=== PATIENT | female | born 1995 | race Hispanic/Latino ===

== ENCOUNTER 2017-08-08 07:42 | Emergency (ER) | payer OTHER ==
[2017-08-08] MEDS ORDERED: Ondansetron ODT 4 MG TAB ONE (08:58)
[2017-08-08 09:09] LABS: Bilirubin Negative (Negative); Blood, Urine Trace (Negative); Clarity CLOUDY (Clear); Glucose, Urine (Dipstick) Negative (Negative); Leukocyte Moderate (Negative); Nitrite Positive (Negative); Protein, Urine (Dipstick) Trace mg/dL (Neg-Trace); Specific Gravity, Urine 1.029 (1.002-1.036); Urobilinogen 0.2 mg/dL (0.2-1.0)
[2017-08-08 09:10] LABS: Pregnancy Test - Urine (BHCG) Negative (Negative); Pregu Control Background? CLEAR/WHITE (CLR/WHITE); Pregu Control Bar Appear? YES (CONTROL BAR); Specific Gravity 1.029 (1.002-1.036)
[2017-08-08 09:13] LABS: Bacteria/HPF 4+ HPF (None Seen)
[2017-08-08 09:16] LABS: Pathc Cast-AUWi Flag 2.87 (0-2.49)
[2017-08-08 09:28] LABS: Manual Microscopic Reviewed? No Path Casts Seen
[2017-08-08 09:29] LABS: Hyaline Casts/LPF 0-3 HYALINE CAST LPF (0-3 Hyaline)
== END 2017-08-08 10:37 | disposition home or self-care (01) ==
LOC: ERS 07:42
DX: N39.0 Urinary tract infection, site not specified (principal); R19.7 Diarrhea, unspecified; J45.909 Unspecified asthma, uncomplicated
CPT/HCPCS: 81003; 81015; 81025; 96372; Q0162

== ENCOUNTER 2017-09-26 09:05 | Emergency (ER) | payer MEDICAID, SELFPAY ==
[2017-09-26 09:39] LABS: #Lymphocytes 1.5 thou/uL (1.20-3.40); #Monocytes 0.7 thou/uL (0.11-0.59); #Neutrophils 5.8 thou/uL (1.40-6.50); %Basophils 0.3 % (0.0-1.0); %Eosinophils 0.2 % (0.0-10.0); %Lymphocytes 18.6 % (21.0-51.0); %Monocytes 8.7 % (0.0-10.0); %Neutrophils 72.1 % (42.0-75.0); Hemoglobin 11.7 g/dL (12.0-16.0); Mean Corpuscular HGB CONC 32.9 g/dL (32.0-36.0); Mean Corpuscular Hemoglobin 25.4 pg (27.0-31.0); Mean Corpuscular Volume 77.3 fl (81.0-99.0); Mean Platelet Volume 8.6 fL (7.4-10.4); Platelet Count 232 thou/uL (130-400); RBC Distribution Width 14.6 % (11.5-14.5); Red Blood Cell (RBC) Count 4.59 mill/uL (4.20-5.40)
[2017-09-26 10:01] LABS: ALT (SGPT) 14 U/L (8-55); AST (SGOT) 15 U/L (5-34); Albumin 4.3 g/dL (3.5-5.0); Alkaline Phosphatase 85 U/L (40-150); Anion Gap 12 mmol/L (10-20); BUN (Urea Nitrogen) 13 mg/dL (7.0-18.7); Bilirubin, Total 0.3 mg/dL (0.2-1.2); CK (CPK) 80 U/L (29-168); Calc. Creatinine Clearance 0 mL/min (70-130); Calcium 9.4 mg/dL (7.8-10.44); Carbon Dioxide 24 mmol/L (22-29); Chloride 106 mmol/L (98-107); Estimated GFR-MDRD Greater than 90; Globulin 3.6 g/dL (2.4-3.5); Glucose 98 mg/dL (70-105); Protein, Total 7.9 g/dL (6.0-8.3); Sodium 138 mmol/L (136-145)
[2017-09-26 10:22] LABS: Bilirubin Negative (Negative); Blood, Urine Negative (Negative); Clarity CLOUDY (Clear); Glucose, Urine (Dipstick) Negative (Negative); Leukocyte Trace (Negative); Nitrite Positive (Negative); Protein, Urine (Dipstick) Trace mg/dL (Neg-Trace); Specific Gravity, Urine 1.028 (1.002-1.036); Urobilinogen 0.2 mg/dL (0.2-1.0); pH, Urine 6.5 (5.0-9.0)
[2017-09-26 10:24] LABS: Pregnancy Test - Urine (BHCG) Negative (Negative)
[2017-09-26 10:25] LABS: Bacteria/HPF 1+ HPF (None Seen); Hyaline Casts/LPF 4-6 HYALINE CAST LPF (0-3 Hyaline); Pathc Cast-AUWi Flag 0.58 (0-2.49); Pregu Control Background? CLEAR/WHITE (CLR/WHITE); Pregu Control Bar Appear? YES (CONTROL BAR); RBC/HPF 0-3 HPF (0-3); Specific Gravity 1.028 (1.002-1.036)
[2017-09-26 10:31] LABS: Renal Epithelial None Seen HPF (0-3); Transitional Epithelial NONE SEEN HPF (0-3)
[2017-09-28 01:19] LABS: Chlamydia by PCR Not Detected (NotDetected); GC by PCR Not Detected (NotDetected)
== END 2017-09-26 11:10 | disposition home or self-care (01) ==
LOC: ERS 09:05
DX: B00.9 Herpesviral infection, unspecified (principal); N39.0 Urinary tract infection, site not specified; R33.9 Retention of urine, unspecified; J45.909 Unspecified asthma, uncomplicated
CPT/HCPCS: 36415; 51702; 80053; 81003; 81015; 81025; 82550; 85025; 87077; 87086; 87186; 87480; 87491; 87510; 87591; 87660

== ENCOUNTER 2018-01-05 13:33 | Emergency (ER) | payer SELFPAY | END 2018-01-05 14:14 | disposition home or self-care (01) | LOC: ERS 13:33 | DX: H10.9 Unspecified conjunctivitis (principal); J45.909 Unspecified asthma, uncomplicated | CPT/HCPCS: 99283 ==

== ENCOUNTER 2018-07-30 22:28 | Emergency (ER) | payer SELFPAY | END 2018-07-30 23:26 | disposition home or self-care (01) | LOC: ERS 22:28 | DX: J02.9 Acute pharyngitis, unspecified (principal); J45.909 Unspecified asthma, uncomplicated | CPT/HCPCS: 87081; 87430; 99281 ==

== ENCOUNTER 2019-06-24 19:05 | Emergency (ER) | payer SELFPAY ==
[2019-06-24] MEDS ORDERED: Acetaminophen 500 MG TAB ONE (20:55)
== END 2019-06-24 21:40 | disposition home or self-care (01) ==
LOC: ERS 19:05
DX: O99.513 Diseases of the respiratory system complicating pregnancy, third trimester (principal); J10.1 Influenza due to other identified influenza virus with other respiratory manifestations; J45.909 Unspecified asthma, uncomplicated; O99.89 Other specified diseases and conditions complicating pregnancy, childbirth and the puerperium; H66.92 Otitis media, unspecified, left ear; Z3A.37 37 weeks gestation of pregnancy
CPT/HCPCS: 87804; 99283

== ENCOUNTER 2019-06-28 15:24 | Inpatient (IN) | payer OTHER ==
[2019-06-28] MEDS ORDERED: hydrALAZINE 20 MG/ML VIAL SLOW IVP PRN ×2 (16:16→16:55)
--- NOTE | 2019-06-28 16:16 | PDOC.FPROB ---
FMR OB H&P: HPI - History of Present Illness Chief Complaint: leaking History of Present Illness: 26 yo @38wks by 30.6wk sonswathi presents with leakage since ~midnight 06/26. She denies contractions but endorses clear mucous vaginal discharge, blood tinged yesterday. Endorses movement. FMR OB H&P: Current - Care : 3 Para: 2 Gestational age: 36 Due date: 07/12/19 - OB Labs Blood type: O RH: positive Antibody Screen: negative HIV: negative RPR: negative HepBsAg: negative Rubella: immune Gonorrhea: negative Chlamydia: negative Pap Smear: NILM 1 hour gtt: 2 hr: 82/105/102 GBS: negative H&H: 10.2/32 Platelets: 275 - Anatomy Survey Anatomy survey: placenta anterior unable to visualize four chamber heart 30.6wk scan, poor dating FMR OB H&P: History - Past Medical History PMH: asthma mild pulmonary stenosis, seen by Dr. Cuellar in the past - OB History OB History: 2 prior SVDs. term - [employer] History [employer] History: NILM negative gonorrhea/chlamydia - Surgical History Sx History: none - Social History Social History: denies - Family History Family History: family hx of diabetes FMR OB H&P: Medications - Current Home Medications: Medication Instructions Recorded Confirmed Type Clotrimazole [Clotrimazole 1% TOP 05/09/16 History Cream] Metronidazole [metroNIDAZOLE] 500 mg PO TID 05/09/16 05/09/16 History Pnv95/Iron Fum/Folic Acid 1 each PO DAILY 05/09/16 05/09/16 History [ Caplet] Allergies/Adverse Reactions: Allergies Allergy/AdvReac Type Severity Reaction Status Date / Time No Known Allergies Allergy Verified 06/28/19 15:57 FMR OB H&P: ROS - Review of Systems General: denies: fever/chills, weight/appetite/sleep changes ENT: denies: nasal congestion, rhinorrhea Cardiovascular: denies: chest pain, palpitation Respiratory: denies: cough, congestion, shortness of breath Gastrointestinal: denies: abdominal pain, bloating, cramping, nausea, vomiting, diarrhea Genitourinary (Female): reports: vaginal discharge, other (LOF). denies: vaginal pain, vaginal bleeding, contractions, vaginal pressure Neurologic: denies: numbness, syncope Integumentary: denies: itching, rash Endocrine: denies: cold intolerance, heat intolerance Psychological: denies: depression, anxiety FMR OB H&P: Vital Signs - Maternal Vital signs: 132/80 - Heart Tones Baseline: 130 Variability: moderate Acceleration: absent Deceleration: absent Category: category 1 FMR OB H&P: Physical Exam - Physical Exam General: NAD HEENT: normocephalic and atraumatic, MMM, conjunctiva clear Neck: supple, no LAD, no JVD Heart: RRR, normal S1/S2 General: CTAB, no respiratory distress Abdomen: soft, gravid Skin: no rash, good tugor, capillary refill <2 seconds, no jaundice Lymphatic: no unusual bruising or bleeding, no purpura, no petechia - Pelvic Exam Vulva: normal hair distribution, no masses, no lesions Deviation from normal: pooling in posterior vagina; dickens/white discharge in posterior vagina SVE: closed FMR OB H&P: A/P - Problem List (1) PROM (premature rupture of membranes) Current Visit: Yes Status: Acute Code(s): O42.90 - KYLAH ROM, 7TH0 BETW RUPT & ONST LABR, UNSP WEEKS OF GEST Discussion: Date/Time: 06/28/19 1615 26 yo @38wks by 30.6wk sono admitted for prolonged PROM. 1.)Prolonged PROM-@38wks by poor dating 30.2wks; will induce labor with cytotec d/t unfavorable cervix. Frequent cervical checks q3hs. Transition to pitocin once favorable. Will monitor vitals for fever etc d/t prolonged PROM. GBS negative. 2.)Hx of asthma-restart home med 3.)Elevated BP without diagnosis of htn-monitor over next 4 hours; consider PIH workup if indicated. This H&P was discussed with Dr. Santiago
[2019-06-28 16:23] LABS: Amnisure Test RUPTURE DETECTED (No Rupture)
[2019-06-28 16:24] LABS: Amnisure Internal Control QC ACCEPTABLE (ACCEPTABLE)
[2019-06-28 16:51] VITALS: BMI 33.6
[2019-06-28] MEDS ORDERED: Ondansetron PF 4 MG/2 ML Vial IVP PRN (16:55)
[2019-06-28] MEDS ORDERED: NS / Oxytocin 40 units/1000ml 1,000 ML IV PRN (16:55)
[2019-06-28] MEDS ORDERED: Promethazine HCl 25 MG/ML VIAL IM PRN (16:55)
[2019-06-28] MEDS ORDERED: Misoprostol 200 MCG TAB PR PRN (16:55)
[2019-06-28] MEDS ORDERED: Ibuprofen 800 MG TAB PO PRN (16:55)
[2019-06-28] MEDS ORDERED: Lidocaine 1% (PF) 30 ML VIAL SC PRN (16:55)
[2019-06-28] MEDS ORDERED: Acetaminophen 500 MG TAB PO PRN (16:55)
[2019-06-28] MEDS: Lactated Ringer's 1,000 ML IV SCH (17:10)
--- NOTE | 2019-06-28 17:28 | HP ---
TIME: 1653 hours. The patient was first seen by Floresita Phan who is the clinical resident transition specialist. REASON FOR EVALUATION: The patient was sent here by the clinic/resident clinic for suspected ROM. HISTORY OF PRESENT ILLNESS: This is a 24-year-old, G3, P2, with a history of 2 prior vaginal deliveries, who is currently at 38 weeks by poor gestational criteria (30 week dating ultrasound). She started that she started leaking fluid about 1-1/2 to 2 days ago and was seen in the clinic where one of the residents performed a sterile spec and noted clear pooling per os. When she arrived here in Labor and Delivery, she again had a sterile spec, which confirmed pooling and AmniSure was positive. She has denied contractions, vaginal bleeding, or decrease in movement. She has no history of fever. REVIEW OF SYSTEMS: Complete review of systems was checked and is otherwise negative unless specified in the HPI. There are no symptoms of pre-eclampsia. PAST OB HISTORY: Significant for 2 prior vaginal births. This , she is GBS negative. PAST MEDICAL HISTORY: Reviewed with resident and will be in their full H and P report. PAST SURGICAL HISTORY: Reviewed with resident and will be in their full H and P report. ALLERGIES: REVIEWED WITH RESIDENT AND WILL BE IN THEIR FULL H AND P REPORT. PHYSICAL EXAMINATION: VITAL SIGNS: Blood pressure is 124/90 and repeat systolic was 138/80. GENERAL: She is in no acute distress. VAGINAL EXAM: Cervix is closed. On monitoring, heart tones are in the 140s to 150s with moderate variability. There are no pathological decelerations. There are no contractions on tocodynamometer. ASSESSMENT: This is a 24-year-old, G3, P2, at 38 weeks by poor date, with prolonged prelabor, rupture of membranes, GBS negative. PLAN: 1. Cytotec per vagina per protocol and per ACOG guidelines. 2. No indication for GBS coverage at this time, even though she is prolonged, culture is negative. 3. Monitor temperatures closely and if there is elevation in temperature or tachycardia, we may consider IV ampicillin and gentamicin for metritis coverage. 4. The patient will be admitted for induction of labor due to a prolonged prelabor rupture of membranes. 5. Please see the full report by the resident transition specialist. Job ID: [id number]
[2019-06-28] MEDS: Misoprostol 100 MCG TAB VAG SCH (17:35)
[2019-06-28 17:50] LABS: Hemoglobin 12.5 g/dL (12.0-16.0); Mean Corpuscular HGB CONC 32.1 g/dL (32.0-36.0); Mean Corpuscular Hemoglobin 24.5 pg (27.0-31.0); Mean Corpuscular Volume 76.2 fL (78.0-98.0); Mean Platelet Volume 10.8 fL (7.4-10.4); Platelet Count 246 thou/uL (130-400); RBC Distribution Width 20.2 % (11.5-14.5); Red Blood Cell (RBC) Count 5.12 mill/uL (4.20-5.40); White Blood Cell (WBC) Count 6.7 thou/uL (4.8-10.8)
[2019-06-28 18:35] LABS: Syphilis Antibody Nonreactive (Nonreactive); Syphilis Antibody Index 0.07 S/CO (<1.00 Non-Reactive)
[2019-06-28 18:36] LABS: HBSAg Index 0.26 S/CO (0-0.99); Hep B Surf Ag Non-Reactive S/CO (NonReactive)
--- NOTE | 2019-06-28 21:22 | PDOC.LDPN ---
Labor & Delivery Progress Note - Subjective Subjective: comfortable, vaginal pressure, no concerns - Objective Vital signs reviewed and normal: yes General: NAD, resting Uterine fundus: non tender Dilation: 2 cm Effacement: 50% Station: -3 FHT: category 1, variability present [place] contractions every: 1 mins Plan: continue plan of care -: Pt is a 24 yo female who presents for prolonged prelabor ROM: # Prolonged Prelabor ROM: 1 cm/50/-3 at 2115 with contractions every 1 minute. s/p 1 dose cytotec at this time.Will recheck in 3 hours. If contractions space out will give one more dose of cytotec. # Influenza 5 day hx. Afebrile at this time.
--- NOTE | 2019-06-29 00:44 | PDOC.LDPN ---
Labor & Delivery Progress Note - Subjective Subjective: comfortable, painful contractions - Objective Vital signs reviewed and normal: yes General: resting, breathing through contractions Uterine fundus: non tender Dilation: 4 cm Effacement: 75% Station: -3 FHT: category 1, acceleration absent, variability present [place] contractions every: q2-3 mins Plan: continue plan of care, pitocin for augmentation (Faculty note: Aware of episode of VB after cytotec. We have since held the cytotec. ) -: Pt is a 24 yo female who presents for prolonged prelabor ROM: # Prolonged Prelabor ROM: /-3 at 0015. s/p 1 dose cytotec at this time. Will recheck in 3 hours. FHT 150's with moderate variability, accels, Cx q2-3 mins. Cat 1 strip. # Vaginal Bleeding 43 gm of blood/clot weighed. Pt does not have any abdominal tenderness. Does have pain only with contractions, not continuous pain. She is not currently bleeding. U/S by residents did not reveal areas of abruption. - check pads for bleeding - assess for abdominal pain/tenderness - d/c cytotec, let pt labor for now, if augmentation needed will start pitocin - monitor FHT's # Influenza 5 day hx. Afebrile at this time.
[2019-06-29] MEDS ORDERED: Fentanyl 4 mcg/Bup 0.1% Cadd 100 ML ONE (01:12)
[2019-06-29] MEDS: Lactated Ringer's 1,000 ML IV SCH ×3 (01:15→17:02)
[2019-06-29] MEDS ORDERED: Naloxone HCl 0.4 mg/ml Vial IVP PRN ×2 (01:59)
[2019-06-29] MEDS ORDERED: Ondansetron PF 4 MG/2 ML Vial IVP PRN (01:59)
[2019-06-29] MEDS ORDERED: Promethazine HCl 25 MG/ML VIAL IM PRN (01:59)
[2019-06-29] MEDS ORDERED: Acetaminophen 325 MG TAB PO PRN (01:59)
[2019-06-29] MEDS ORDERED: ePHEDrine/0.9% NaCl/PF SYRINGE 50 mg/10 ml SLOW IVP PRN (01:59)
[2019-06-29] MEDS ORDERED: Lactated Ringer's 500 ML IV PRN (01:59)
[2019-06-29] MEDS ORDERED: diphenhydrAMINE 50 MG/ML VIAL IVP PRN (01:59)
[2019-06-29] MEDS ORDERED: Communication Order-Pharmacy FS SCH (02:00)
[2019-06-29] MEDS ORDERED: Fentanyl 4 mcg/Bupivacaine 0.1% Cassette 100 ML EPIDURAL SCH (02:00)
--- NOTE | 2019-06-29 03:30 | PDOC.EVN ---
Event Note - Event Note Event Note: OBGYN Staff: [id number] Aware of episode of VB after last cytotec. CX strill 4cm at last check...ok to start pitocin as Prolonged ROM and still latent phase. VB episode may have been CX change vs possible slight marginal placental separation.However, FHTs are reassurring and uterine fundus soft and NT. Vitals stable. OK for pit for augmentation to facilitate labor process.
--- NOTE | 2019-06-29 03:36 | PDOC.LDPN ---
Labor & Delivery Progress Note - Subjective Subjective: comfortable, vaginal pressure - Objective Vital signs reviewed and normal: yes General: resting, breathing through contractions Dilation: 4cm Effacement: 75% Station: -2 FHT: category 2, variable decelerations, variability present [place] contractions every: q3mins Plan: pitocin for augmentation -: Pt is a 24 yo female who presents for prolonged prelabor ROM: # Prolonged Prelabor ROM: 4/75/-2 at 0300. s/p 1 dose cytotec at this time. Cat 2 Strip. - start pitocin. Pt has not made significant change and will help augment labor. Will closely monitor as pt has had 2 episodes of vaginal bleeding. - recheck in 2 hours # Vaginal Bleeding Pt has 2 episodes of vaginal bleeding/clots. Pt does not have any abdominal tenderness. Does have pain only with contractions, not continuous pain. U/S by residents did not reveal areas of abruption at 0015. - check pads for bleeding - assess for abdominal pain/tenderness - d/c cytotec, let pt labor for now, augment with pitocin - monitor FHT's # Influenza 5 day hx. Afebrile at this time.
[2019-06-29] MEDS ORDERED: NS w/ Oxytocin 10 units 500 ML IV SCH (03:45)
[2019-06-29] MEDS: NS w/ Oxytocin 10 units 500 ML IV SCH (04:01)
--- NOTE | 2019-06-29 05:40 | PDOC.LDPN ---
Labor & Delivery Progress Note - Subjective Subjective: comfortable - Objective Vital signs reviewed and normal: yes General: NAD, resting Uterine fundus: non tender Dilation: 6 Effacement: 90% Station: -1 FHT: category 2, late decelerations, absent or minimal variables [place] contractions every: 2-3 Resuscitative measures: maternal IV fluids, maternal position change - Assessment (1) PROM (premature rupture of membranes) Code(s): O42.90 - KYLAH ROM, 7TH0 BETW RUPT & ONST LABR, UNSP WEEKS OF GEST Current Visit: Yes Status: Acute (2) Prolonged rupture of membranes Code(s): O42.90 - KYLAH ROM, 7TH0 BETW RUPT & ONST LABR, UNSP WEEKS OF GEST Current Visit: Yes Status: Acute Plan: continue plan of care, pitocin for augmentation -: Pt is a 24 yo female who presents for prolonged prelabor ROM: # Prolonged Prelabor ROM: /-1 at 0515. s/p 1 dose cytotec, pit started 0350, currently at 2. Cat 2 Strip. - Making good change, will continue with pitocin. Will closely monitor as pt has had 2 episodes of vaginal bleeding. - recheck in 2 hours # Vaginal Bleeding Pt has 2 episodes of vaginal bleeding/clots. Pt does not have any abdominal tenderness. Does have pain only with contractions, not continuous pain. U/S by residents did not reveal areas of abruption at 0015. - check pads for bleeding - assess for abdominal pain/tenderness - d/c cytotec, let pt labor for now, augment with pitocin - monitor FHT's # Influenza 5 day hx. Afebrile at this time.
[2019-06-29] MEDS ORDERED: Lidocaine 1% (PF) 30 ML VIAL ONE (05:56)
[2019-06-29] MEDS ORDERED: NS / Oxytocin 40 units/1000ml 1,000 ML ONE (05:56)
--- NOTE | 2019-06-29 06:41 | PDOC.EVN ---
Event Note - Event Note Event Note: OBGYN Faculty Called stat to LDR7 at 0630 I arrived at 0631 and baby was delivering with residents at [facility]. Blood came with placental delivery suspicion for marginal abruption as previously noted. Baby was vigorous. Apgars 7/9. Gas sent. EBL about 500ml Present for the delivery and placental delivery. Placenta to path. Mother and baby well. baby doing skin to skin.
[2019-06-29 07:01] LABS: Actual Bicarbonate (HCO3a) 23.4 mEq/L (22-28); Base Excess (BEa) -5.1 mEq/L (-2.0 to +3.0)
[2019-06-29 07:04] LABS: Actual Bicarbonate (HCO3v) 23 mEq/L (22-28); Base Excess -4.9 mEq/L (-2.0 to +3.0); pH (Cord, venous) 7.25 (7.32-7.43)
[2019-06-29] MEDS ORDERED: Fluconazole 100 MG TAB PO SCH (08:45)
[2019-06-29] MEDS ORDERED: NS / Oxytocin 40 units/1000ml 1,000 ML IV SCH (09:19)
[2019-06-29] MEDS ORDERED: Bisacodyl 10 MG SUPP PR PRN (09:19)
[2019-06-29] MEDS ORDERED: Benzocaine-Menthol 82.5 ML CAN TOP PRN (09:19)
[2019-06-29] MEDS ORDERED: Preparation H Ointment 28 GM TUBE PR PRN (09:19)
[2019-06-29] MEDS ORDERED: hydrALAZINE 20 MG/ML VIAL SLOW IVP PRN (09:19)
[2019-06-29] MEDS ORDERED: Milk Of Magnesia 30 ML UDCUP PO PRN (09:19)
[2019-06-29] MEDS ORDERED: Lanolin Ointment 7 GM TUBE TOP PRN (09:19)
[2019-06-29] MEDS ORDERED: Adacel (T-DAP) 0.5 ML SYRINGE IM ONE (09:19)
[2019-06-29] MEDS ORDERED: Docusate Calcium (SURFAK) 240 MG CAP PO SCH (09:45)
[2019-06-29] MEDS ORDERED: Prenatal Vitamin 1 TAB PO SCH (09:45)
[2019-06-29] MEDS ORDERED: Ferrous Sulfate 325 MG TAB PO SCH (09:45)
[2019-06-29] MEDS: metroNIDAZOLE 500 MG TAB PO SCH ×2 (11:21→21:58)
[2019-06-29] MEDS: Ibuprofen 800 MG TAB PO PRN ×2 (14:25→21:59)
[2019-06-29] MEDS: Ferrous Sulfate 325 MG TAB PO SCH (17:02)
[2019-06-29] MEDS: Misoprostol 100 MCG TAB VAG SCH (19:43)
[2019-06-29] MEDS: Docusate Calcium (SURFAK) 240 MG CAP PO SCH (21:59)
[2019-06-30] MEDS: Lactated Ringer's 1,000 ML IV SCH ×3 (04:01→20:21)
[2019-06-30] MEDS: NS w/ Oxytocin 10 units 500 ML IV SCH (04:02)
[2019-06-30] MEDS: Ibuprofen 800 MG TAB PO PRN ×3 (05:05→21:17)
--- NOTE | 2019-06-30 07:28 | DN ---
DATE OF PROCEDURE: 06/29/2019 DELIVERING PHYSICIAN: Dr. Susana Hartmann. PROCEDURE PERFORMED: Spontaneous vaginal delivery. ANESTHESIA: Epidural. ESTIMATED BLOOD LOSS: 500 mL. PREOPERATIVE DIAGNOSES: 1. Term intrauterine . 2. Prelabor rupture of membranes. 3. Pulmonic stenosis. 4. Asthma. 5. Suspected marginal abruption. 6. Late care. POSTOPERATIVE DIAGNOSES: 1. Term intrauterine , delivered. 2. Prelabor rupture of membranes. 3. Pulmonic stenosis. INDICATIONS FOR PROCEDURE: This is a 24-year-old female, G3, P2-0-0-2, who presented with labor rupture of membranes confirmed by AmniSure as well as pooling on speculum exam. She is admitted to Labor and Delivery for induction. The exact time of rupture is unknown, but the patient thinks she had been leaking since the evening of 06/26. DESCRIPTION OF PROCEDURE: This is a 24-year-old female, G3, P2-0-0-2 at 38 and 1 weeks by a 30 and 2 week sono who delivered a viable male at 6:30 a.m. on 06/29/2019 via spontaneous vaginal delivery. Prior to delivery, the patient was noted to have a category II strip with minimal variability and late decelerations. She was flipped onto her hands and knees in an attempt to improve heart tones. While on hands and knees, began to deliver precipitously. Forebag was noted to be present. The infant did deliver over an intact perineum in what appeared to be the occipitoanterior position. Anterior shoulder and remainder of the body delivered. There was one tight nuchal, which was reduced as well as the body cord. The head was held down and mouth and nares were bulb suctioned. The cord was clamped and cut and cord blood was collected. There was also a portion of the umbilical cord collected for gas analysis given the category II strip as well as suspected marginal abruption, which seemed evident during delivery as there was a large amount of blood that was delivered at the time baby was delivered. The placenta did deliver intact with a 3-vessel cord noted. Fundal massage was performed and the fundus was rather firm. Cervix and vagina were inspected and found to be free of lacerations. The infant went to nursery in good condition for routine care. Apgars were 7 and 9 at 1 and 5 minutes respectively. The patient did tolerate the delivery well and went to after routine recovery/care. Job ID: [id number]
[2019-06-30 07:41] LABS: Hemoglobin 8.8 g/dL (12.0-16.0); Mean Corpuscular HGB CONC 31.5 g/dL (32.0-36.0); Mean Corpuscular Hemoglobin 24.4 pg (27.0-31.0); Mean Corpuscular Volume 77.3 fL (78.0-98.0); Mean Platelet Volume 9.3 fL (7.4-10.4); Platelet Count 181 thou/uL (130-400); RBC Distribution Width 19.8 % (11.5-14.5); Red Blood Cell (RBC) Count 3.62 mill/uL (4.20-5.40); White Blood Cell (WBC) Count 7.3 thou/uL (4.8-10.8)
--- NOTE | 2019-06-30 09:31 | PDOC.PP ---
Post Progress Note Post Day #: 1 Subjective: Patient doing well. No significant overnight events. Patient tolerating PO and ambulating without difficulty. PO intake tolerated: yes Flatus: yes Ambulation: yes Vital Signs (12 hours) Temp Pulse Resp BP Pulse Ox 06/30/19 07:52 98.0 F 77 16 128/82 99 06/30/19 05:05 98.1 F 71 16 138/79 06/30/19 01:35 97.7 F 65 16 156/79 H Weight Weight 86.183 kg - Physical Examination General: NAD Cardiovascular: RRR Respiratory: non-labored breathing Abdominal: + bowel sounds, lochia (minimal/like period), no distention, appropriately TTP Fundus firm & at: umbilicus Skin: no rash Neurological: no gross focal deficits Psychiatric: A&Ox3, normal affect Result Diagrams: 06/30/19 07:11 Additional Labs: Post Labs Blood Type O POSITIVE 06/28/19 17:31 Hep Bs Antigen Non-Reactive S/CO (NonReactive) 06/28/19 17:31 (1) Term delivered Code(s): O80 - ENCOUNTER FOR FULL-TERM UNCOMPLICATED DELIVERY Status: Acute - Assessment/Plan Routine PP care - Meeting PP milestones - Rh positive, rubella immune - Lochia minimal Pulmonic stenosis - Previously followed by Dr. Cuellar - Recommend follow up with Cardiology PP Asthma - Recommend continued use of Advair ARI and albuterol inhaler PRN Marginal placental abruption - Placenta path pending - Hg 12.5 --> 8.8; asymptomatic Dispo: D/c home tomorrow. to stay another night. Addendum - Attending - Attending Attestation Date/Time: 07/01/19 52 I personally evaluated the patient and discussed the management with Dr. Reyez. I agree with the Assessment and Plan documented above.
[2019-06-30] MEDS: Docusate Calcium (SURFAK) 240 MG CAP PO SCH ×2 (09:41→21:17)
[2019-06-30] MEDS: Prenatal Vitamin 1 TAB PO SCH (09:41)
[2019-06-30] MEDS: metroNIDAZOLE 500 MG TAB PO SCH ×2 (09:41→21:17)
[2019-06-30] MEDS: Ferrous Sulfate 325 MG TAB PO SCH ×2 (09:41→17:46)
[2019-07-01] MEDS: NS w/ Oxytocin 10 units 500 ML IV SCH (03:59)
[2019-07-01] MEDS: Lactated Ringer's 1,000 ML IV SCH ×2 (03:59→09:38)
--- NOTE | 2019-07-01 07:23 | PDOC.PP ---
Post Progress Note Post Day #: 2 Subjective: Patient doing well. No significant overnight events. Patient tolerating PO and ambulating without difficulty. PO intake tolerated: yes Flatus: yes Ambulation: yes Vital Signs (12 hours) Temp Pulse Resp BP Pulse Ox 06/30/19 19:50 97.8 F 79 16 118/79 95 Weight Weight 86.183 kg - Physical Examination General: NAD Cardiovascular: RRR Deviation from normal: 3/6 murmur Respiratory: clear to auscultation bilaterally, non-labored breathing Abdominal: + bowel sounds, lochia (minimal), no distention, appropriately TTP Fundus firm & at: below umbilicus Skin: no rash Neurological: no gross focal deficits Psychiatric: A&Ox3, normal affect Result Diagrams: 06/30/19 07:11 Additional Labs: Post Labs Blood Type O POSITIVE 06/28/19 17:31 Hep Bs Antigen Non-Reactive S/CO (NonReactive) 06/28/19 17:31 (1) Term delivered Code(s): O80 - ENCOUNTER FOR FULL-TERM UNCOMPLICATED DELIVERY Status: Acute - Assessment/Plan Routine PP care - PP day #2 - Meeting PP milestones - Rh positive, rubella immune - Lochia minimal Pulmonic stenosis - Previously followed by Dr. Cuellar - Recommend follow up with Cardiology PP Asthma - Recommend continued use of Advair ARI and albuterol inhaler PRN Marginal placental abruption - Placenta path pending - Hg 12.5 --> 8.8; asymptomatic Elevated BP without diagnosis of HTN - One BP with systolic 156, but on repeat WNL - Patient is at risk given pulmonic stenosis - Recommend patient follow up with [facility] for BP check - Recommend rescheduling Cardiology appt since patient missed due to delivery Dispo: D/c home today. Follow up at [facility] in 2 weeks. Addendum - Attending - Attending Attestation Date/Time: 07/03/19 0805 I personally evaluated the patient and discussed the management with Dr. Hartmann I agree with the History, Examination, Assessment and Plan documented above with any addition or exceptions noted below.
[2019-07-01 08:39] VITALS: BP 135/89; TEMP 98.1
[2019-07-01] MEDS: Ferrous Sulfate 325 MG TAB PO SCH (09:36)
[2019-07-01] MEDS: Docusate Calcium (SURFAK) 240 MG CAP PO SCH (09:37)
[2019-07-01] MEDS: metroNIDAZOLE 500 MG TAB PO SCH (09:38)
[2019-07-01] MEDS: Prenatal Vitamin 1 TAB PO SCH (09:38)
== END 2019-07-01 12:15 | disposition home or self-care (01) | DRG 805 ==
LOC: L&D/OP 15:24 → L&D 16:41 → L&D/OP 06-29 04:58 → L&D 06-29 04:58 → 3SW 06-29 09:46
PROVIDERS: ADMIT Family Medicine; ATTEND Family Medicine
PROC: 10E0XZZ Delivery of Products of Conception, External Approach (ICD-10-PCS; principal; 2019-06-29)
DX: O42.92 Full-term premature rupture of membranes, unspecified as to length of time between rupture and onset of labor (principal); O45.8X3 Other premature separation of placenta, third trimester; Z37.0 Single live birth; Q22.1 Congenital pulmonary valve stenosis; O99.52 Diseases of the respiratory system complicating childbirth; Z3A.38 38 weeks gestation of pregnancy; O69.81X0 Labor and delivery complicated by cord around neck, without compression, not applicable or unspecified; O76 Abnormality in fetal heart rate and rhythm complicating labor and delivery
CPT/HCPCS: 36415; 51702; 82805; 84112; 85027; 86780; 86850; 86900; 86901; 87340; 87480; 87510; 87660; 88307; 99285; J2001

== ENCOUNTER 2019-12-02 05:27 | Emergency (ER) | payer OTHER ==
--- NOTE | 2019-12-02 07:15 | RAD ---
PORTABLE CHEST: Date: 12/02/2019 PROVIDED CLINICAL HISTORY: Cough. FINDINGS: Cardiac and mediastinal silhouette is within normal limits. No focal consolidation, pleural fluid, or pneumothorax apparent. IMPRESSION: No evidence for an acute cardiopulmonary process. POS: AURA
[2019-12-02 14:54] LABS: SARS-CoV-2 MS2 Positive; SARS-CoV-2 N Gene Negative; SARS-CoV-2 S Gene Negative; SARS-CoV-2 orf1ab Negative
== END 2019-12-02 06:15 | disposition home or self-care (01) ==
LOC: ERS 05:27
DX: J02.9 Acute pharyngitis, unspecified (principal); R05 Cough; J45.909 Unspecified asthma, uncomplicated; Z20.828 Contact with and (suspected) exposure to other viral communicable diseases
CPT/HCPCS: 71045; 87635; U0003

== ENCOUNTER 2020-04-08 20:34 | Emergency (ER) | payer OTHER ==
[~2020-04-08 20:34] MED LIST: Iopamidol-370 76% 500 ML 1 ML ONE
--- NOTE | 2020-04-08 21:18 | RAD ---
XR Chest 1 View Portable HISTORY: Dyspnea COMPARISON: 12/02/2019 FINDINGS: The heart size is normal. The lungs are well expanded without focal areas of consolidation, pneumothorax or pleural effusions. IMPRESSION: No radiographic evidence of acute cardiopulmonary process.
[2020-04-08 21:20] LABS: #Lymphocytes 1.5 thou/uL (1.20-3.40); #Monocytes 0.4 thou/uL (0.11-0.59); #Neutrophils 2.1 thou/uL (1.40-6.50); %Basophils 1.1 % (0.0-1.0); %Eosinophils 0.7 % (0.0-10.0); %Lymphocytes 36.3 % (21.0-51.0); %Monocytes 10.4 % (0.0-10.0); %Neutrophils 51.5 % (42.0-75.0); Hemoglobin 13.1 g/dL (12.0-16.0); Mean Corpuscular HGB CONC 34.2 g/dL (32.0-36.0); Mean Corpuscular Hemoglobin 28.5 pg (27.0-31.0); Mean Corpuscular Volume 83.3 fL (78.0-98.0); Mean Platelet Volume 8.6 fL (7.4-10.4); Platelet Count 222 thou/uL (130-400); RBC Distribution Width 12.9 % (11.5-14.5); White Blood Cell (WBC) Count 4.1 thou/uL (4.8-10.8)
[2020-04-08 21:36] LABS: ALT (SGPT) 38 U/L (8-55); AST (SGOT) 28 U/L (5-34); Alkaline Phosphatase 96 U/L (40-110); Anion Gap 13 mmol/L (10-20); BUN (Urea Nitrogen) 10 mg/dL (7.0-18.7); Bilirubin, Total 0.2 mg/dL (0.2-1.2); Calc. Creatinine Clearance 0 mL/min (70-130); Calcium 9.2 mg/dL (7.8-10.44); Carbon Dioxide 24 mmol/L (22-29); Chloride 106 mmol/L (98-107); Estimated GFR-MDRD Greater than 90; Globulin 3.5 g/dL (2.4-3.5); Glucose 96 mg/dL (70-105); Potassium 3.8 mmol/L (3.5-5.1); Protein, Total 7.5 g/dL (6.0-8.3); Sodium 139 mmol/L (136-145)
[2020-04-08] MEDS ORDERED: Ketorolac Tromethamine 30 MG/ML VIAL ONE (21:42)
[2020-04-08] MEDS ORDERED: Acetaminophen 325 MG TAB ONE (21:42)
[2020-04-08] MEDS ORDERED: predniSONE 20 MG TAB ONE (21:42)
[2020-04-08 22:37] LABS: BHCG - Serum Negative (NEGATIVE); Pregs Control Background? CLEAR/WHITE (CLR/WHITE); Pregs Control Bar Appear? YES (CONTROL BAR)
--- NOTE | 2020-04-08 23:13 | CT ---
CT PULMONARY ANGIOGRAM WITH IV CONTRAST AND 3-D POSTPROCESSING: HISTORY:Dyspnea. Positive d-dimer. Positive COVID 19 FINDINGS: There is good contrast opacification of the pulmonary arterial vasculature without filling defects to suggest pulmonary embolism. The thoracic aorta is well opacified without aneurysm or dissection. No pleural or pericardial effusions are seen. No pneumothoraces, lobar consolidation or lung nodules are noted. There is a 17 mm focal groundglass opacity with reversed halo sign is seen in the left lower lobe. Upper abdominal tomograms are unremarkable. IMPRESSION: 1. No CT evidence of pulmonary embolism. 2. Findings suggestive of COVID19 pneumonia.
[2020-04-09 12:44] LABS: SARS-CoV-2 MS2 Positive; SARS-CoV-2 N Gene Positive; SARS-CoV-2 S Gene Positive; SARS-CoV-2 by NAA DETECTED (NotDetected); SARS-CoV-2 orf1ab Positive
== END 2020-04-09 00:25 | disposition home or self-care (01) ==
LOC: ERS 20:34
DX: U07.1 COVID-19 (principal); J45.909 Unspecified asthma, uncomplicated
CPT/HCPCS: 36415; 71045; 71275; 80053; 84484; 84703; 85025; 85379; 87635; 87804; 93005; 94760; 96372; J1885; J7512; Q9967; U0003

== ENCOUNTER 2023-01-31 03:43 | Emergency (ER) | payer OTHER | END 2023-01-31 05:02 | disposition home or self-care (01) | LOC: ERS 03:43 | DX: B34.9 Viral infection, unspecified (principal); Z20.822 Contact with and (suspected) exposure to COVID-19 | CPT/HCPCS: 87635; 99283 ==

== ENCOUNTER 2023-03-05 22:06 | Emergency (ER) | payer OTHER ==
[2023-03-05] MEDS ORDERED: Ibuprofen 200 MG TAB ONE (22:50)
[2023-03-05 22:57] LABS: Bacteria/HPF 2+ HPF (None Seen); Bilirubin Negative (Negative); Blood, Urine Negative (Negative); CAUTI Indications for Culture Pelvic or flank pain; Clarity Clear (Clear); Glucose, Urine (Dipstick) Normal (Negative); Ketone, Urine Negative (Negative); Leukocyte 75 Leu/uL (Negative); Nitrite Negative (Negative); Protein, Urine (Dipstick) Negative (Neg-Trace); RBC/HPF 0-3 HPF (0-3); Specific Gravity, Urine 1.024 (1.002-1.036); Urobilinogen Normal mg/dL (Less than 2); pH, Urine 6.5 (5.0-9.0)
[2023-03-05 22:58] LABS: Urine Culture Reflex No No
[2023-03-05 23:00] LABS: #Basophils 0.1 thou/uL (0.0-0.2); #Eosinphils 0.2 thou/uL (0.0-0.7); #Monocytes 0.6 thou/uL (0.11-0.59); #Neutrophils 4.5 thou/uL (1.40-6.50); %Basophils 0.6 % (0.0-1.0); %Eosinophils 2.8 % (0.0-10.0); %Lymphocytes 35.2 % (21.0-51.0); %Monocytes 7.6 % (0.0-10.0); %Neutrophils 53.4 % (42.0-75.0); Hematocrit 36.5 % (36.0-47.0); Hemoglobin 11.5 g/dL (12.0-16.0); Mean Corpuscular HGB CONC 31.5 g/dL (32.0-36.0); Mean Corpuscular Hemoglobin 25.7 pg (27.0-31.0); Mean Corpuscular Volume 81.7 fl (78.0-98.0); Mean Platelet Volume 10.9 fL (7.4-10.4); Platelet Count 313 10x3/uL (130-400); Red Blood Cell (RBC) Count 4.47 mill/uL (4.20-5.40); White Blood Cell (WBC) Count 8.5 10x3/uL (4.8-10.8)
[2023-03-05 23:22] LABS: BHCG - Serum Negative (NEGATIVE); Pregs Control Background? CLEAR/WHITE (CLR/WHITE); Pregs Control Bar Appear? YES (CONTROL BAR)
[2023-03-05 23:26] LABS: ALT (SGPT) 62 U/L (8-55); AST (SGOT) 32 U/L (5-34); Albumin 4.4 g/dL (3.5-5.0); Alkaline Phosphatase 113 U/L (40-110); Anion Gap 12 mmol/L (10-20); BUN (Urea Nitrogen) 11 mg/dL (7.0-18.7); Bilirubin, Total 0.2 mg/dL (0.2-1.2); Calc. Creatinine Clearance 0 mL/min (70-130); Calcium 9.9 mg/dL (7.8-10.44); Carbon Dioxide 26 mmol/L (22-29); Chloride 104 mmol/L (98-107); Estimated GFR 102; Globulin 3.5 g/dL (2.4-3.5); Glucose 106 mg/dL (70-105); Potassium 3.7 mmol/L (3.5-5.1); Protein, Total 7.9 g/dL (6.0-8.3); Sodium 138 mmol/L (136-145)
== END 2023-03-05 23:47 | disposition home or self-care (01) ==
LOC: ERS 22:06
DX: N39.0 Urinary tract infection, site not specified (principal)
CPT/HCPCS: 36415; 80053; 81001; 84703; 85025; 99284